=== PATIENT | female | born 1985 | race Two or more races ===

== ENCOUNTER → 2025-01-26 | Outpatient (CLI) | payer MEDICAID, SELFPAY ==
--- NOTE | 2025-01-26 14:00 | XR_ITS ---
Examination: Pelvic ultrasound, transabdominal, complete Technique: Transabdominal ultrasound of the pelvis performed using grayscale imaging Date and time of exam: January 26, 2025, 1435 hours INDICATIONS: Pelvic pain beginning several years ago FINDINGS: Absent uterus absent ovaries Mass in the midline pelvis 3.8 x 2.8 x 5.3 cm IMPRESSION: Mass in the midline pelvis 3.8 x 2.8 x 5.3 cm, recommend MRI pelvis follow-up pre and postcontrast
== END | disposition home or self-care (01) ==
PROVIDERS: Referring Provider Nurse Practitioner Family; Visit Provider Nurse Practitioner Family
DX: R19.09 Other intra-abdominal and pelvic swelling, mass and lump (principal)
CPT/HCPCS: 76856